=== PATIENT | female | born 1965 | race Hispanic/Latino ===

== ENCOUNTER 2017-06-18 17:47 | Emergency (ER) | payer OTHER, SELFPAY ==
[~2017-06-18 17:47] MED LIST: ISOVUE-370 76%-LOCM 1 ML ONE
[2017-06-18] MEDS ORDERED: Ondansetron HCl/PF 4 MG/2 ML Vial ONE ×2 (18:55→21:56)
[2017-06-18] MEDS ORDERED: Morphine 10 MG/ML VIAL ONE (18:55)
[2017-06-18 19:34] LABS: ALT (SGPT) 41 U/L (8-55); AST (SGOT) 28 U/L (5-34); Alkaline Phosphatase 96 U/L (40-150); Anion Gap 14 mmol/L (10-20); BUN (Urea Nitrogen) 17 mg/dL (7.0-18.7); Bilirubin, Total 0.3 mg/dL (0.2-1.2); Calc. Creatinine Clearance 0 mL/min (70-130); Calcium 9.4 mg/dL (7.8-10.44); Carbon Dioxide 27 mmol/L (22-29); Chloride 106 mmol/L (98-107); Estimated GFR-MDRD 77; Globulin 3.8 g/dL (2.4-3.5); Lipase 12 U/L (8-78); Protein, Total 7.8 g/dL (6.0-8.3)
[2017-06-18 19:38] LABS: Troponin I Less than 0.010 ng/mL (< 0.028)
--- NOTE | 2017-06-18 19:48 | CT ---
CT OF ABDOMEN AND PELVIS PERFORMED WITH INTRAVENOUS CONTRAST ENHANCEMENT: History: Abdominal pain. History of cholecystectomy. Frequent bowel movements with bright red blood. Also history of diverticulitis. Comparison: 05-25-16 FINDINGS: The lung bases are clear of any infiltrative process. The liver and spleen show no focal abnormalities. Pancreas region is unremarkable. The gallbladder h as been removed. Right and left adrenal glands and right and left kidneys are normal in size. There is no significant periaortic or mesenteric adenopathy. CT OF PELVIS PERFORMED WITH CONTRAST ENHANCEMENT: Sigmoid diverticulosis is noted. The appendix is normal. There is no evidence of adenopathy or mass. IMPRESSION: 1. Sigmoid diverticulosis. No acute abnormality of the abdomen or pelvis. POS: [facility]
[2017-06-18 20:52] LABS: Bilirubin Negative (Negative); Blood, Urine Negative (Negative); Glucose, Urine (Dipstick) Negative (Negative); Ketone, Urine Negative (Negative); Nitrite Negative (Negative); Protein, Urine (Dipstick) Negative (Neg-Trace)
[2017-06-18] MEDS ORDERED: Ketorolac Tromethamine 30 MG/ML VIAL ONE (21:32)
[2017-06-18] MEDS ORDERED: Morphine 2 MG/ML SYRINGE ONE (21:32)
[2017-06-18 21:40] LABS: #Eosinphils 0.2 thou/uL (0.0-0.7); #Lymphocytes 1.9 thou/uL (1.20-3.40); #Monocytes 0.7 thou/uL (0.11-0.59); #Neutrophils 4.8 thou/uL (1.40-6.50); %Basophils 0.5 % (0.0-1.0); %Eosinophils 2.3 % (0.0-10.0); %Lymphocytes 24.7 % (21.0-51.0); %Monocytes 9.7 % (0.0-10.0); Hematocrit 41.6 % (36.0-47.0); Mean Platelet Volume 9.2 fL (7.4-10.4); Red Blood Cell (RBC) Count 4.74 mill/uL (4.20-5.40); White Blood Cell (WBC) Count 7.6 thou/uL (4.8-10.8)
== END 2017-06-18 22:16 | disposition home or self-care (01) ==
LOC: ERS 17:47
DX: K62.5 Hemorrhage of anus and rectum (principal); G47.30 Sleep apnea, unspecified; M06.9 Rheumatoid arthritis, unspecified; J45.909 Unspecified asthma, uncomplicated; F41.9 Anxiety disorder, unspecified; Z79.891 Long term (current) use of opiate analgesic; Z79.899 Other long term (current) drug therapy
CPT/HCPCS: 74177; 80053; 81003; 82553; 83690; 84484; 85025; 96361; 96374; 96375; 96376; J1885; J2270; J2405

== ENCOUNTER 2017-08-31 16:55 | Emergency (ER) | payer MEDICAID, OTHER ==
[2017-08-31] MEDS ORDERED: Ketorolac Tromethamine 30 MG/ML VIAL ONE (18:32)
--- NOTE | 2017-08-31 20:09 | RAD ---
THREE VIEWS LUMBAR SPINE 08/31/17 HISTORY: Sciatic pain. COMPARISON: None. FINDINGS: Three views lumbar spine demonstrates six lumbar type vertebral bodies. Vertebral body height is main tained. No fracture. Disc space heights are preserved. Mild degenerative change in the posterior [place] ents at L5-L6. IMPRESSION: 1. No fracture. No significant loss of disc space height. 2. Six lumbar type vertebral bodies with mild degenerative change at L5-L6. POS: [facility]
--- NOTE | 2017-08-31 20:10 | RAD ---
LEFT HIP TWO VIEWS 08/31/17 COMPARISON: 07/02/17 HISTORY: Left hip pain. Pain will not subside after being given a shot. FINDINGS: Contour of the femoral head is maintained. No fracture or dislocation. Hip joint space is preserved. IMPRESSION: No significant degenerative change. No fracture. Stable exam. POS: [facility]
== END 2017-08-31 19:43 | disposition home or self-care (01) ==
LOC: ERS 16:55
DX: M54.5 Low back pain (principal); M25.552 Pain in left hip; F41.9 Anxiety disorder, unspecified; G43.909 Migraine, unspecified, not intractable, without status migrainosus; G47.30 Sleep apnea, unspecified; J45.909 Unspecified asthma, uncomplicated; M06.9 Rheumatoid arthritis, unspecified; Z79.899 Other long term (current) drug therapy
CPT/HCPCS: 72100; 96372; J1885

== ENCOUNTER 2017-09-03 17:30 | Emergency (ER) | payer OTHER ==
[2017-09-03] MEDS ORDERED: Ondansetron ODT 4 MG TAB ONE (19:09)
[2017-09-03] MEDS ORDERED: Acetaminophen 500 MG TAB ONE (19:09)
== END 2017-09-03 20:25 | disposition home or self-care (01) ==
LOC: ERS 17:30
DX: J11.1 Influenza due to unidentified influenza virus with other respiratory manifestations (principal); G43.909 Migraine, unspecified, not intractable, without status migrainosus; G47.30 Sleep apnea, unspecified; M06.9 Rheumatoid arthritis, unspecified; J45.909 Unspecified asthma, uncomplicated; F41.9 Anxiety disorder, unspecified
CPT/HCPCS: 94640; J7620; Q0162

== ENCOUNTER 2017-10-09 13:52 | Observation (INO) | payer OTHER ==
[2017-10-09] MEDS ORDERED: Albuterol Sulfate 2.5 mg/3 ml Neb NEB PRN (15:15)
[2017-10-09] MEDS ORDERED: Ondansetron HCl/PF 4 MG/2 ML Vial IVP PRN (15:18)
[2017-10-09] MEDS ORDERED: Ondansetron ODT 4 MG TAB PO PRN (15:18)
[2017-10-09] MEDS ORDERED: Sodium Chloride 0.9% 1,000 ML IV SCH (15:30)
[2017-10-09] MEDS ORDERED: Morphine 10 MG/ML CARPUJECT SLOW IVP PRN ×2 (16:03)
--- NOTE | 2017-10-09 17:20 | HP ---
PRIMARY CARE PHYSICIAN: Bharati Cortez M.D. PRESENTING COMPLAINT: Shortness of breath. HISTORY OF PRESENT ILLNESS: Ms. Shelby Mishra is a 52-year-old woman with a past medica l history of asthma, fibromyalgia, rheumatoid arthritis, osteoarthritis and diverticulitis who presen ts to the emergency room with a 5-day history of progressively worsening shortness of breath. This w as associated with a cough productive of clear/yellowish sputum. She denies fevers or chills, chest pain, palpitations, PND or lower extremity edema. She, however, admits to occasional headaches, naus ea, and wheezing. She has no history of intubation, has been placed on BiPAP before. She was seen b y primary care physician who started her on cephalosporin and steroids, but the patient's symptoms di d not ariana. She went to [place] where she was started on magnesium and Solu-Medrol and althoug h she improved slightly, she was still visibly short of breath and not able to speak in complete sent ences. She was thus transferred to the ER. At the emergency room, her vital signs were stable. Lab s were unremarkable with no increased WBC. Chest x-ray was normal. She was started on nebulizer dottie atments, antibiotics, and admitted for further management. PAST MEDICAL HISTORY: Asthma, fibromyalgia, rheumatoid arthritis, osteoarthritis, and diverticulitis . PAST SURGICAL HISTORY: Two C-sections, cholecystectomy and uterine ablation. FAMILY HISTORY: Reviewed, not contributory. SOCIAL HISTORY: Denies smoking, drinking alcohol or use of illicit drugs. ALLERGIES: None. REVIEW OF SYSTEMS: Constitutional: Denies weight loss, fevers or chills. HEENT: Denies any change s in vision, nasal congestion or ear problems. Cardiovascular: Negative. Respiratory: Per HPI. A bdominal: Negative. Genitourinary: Negative. Hematology: Negative. Allergy/immunology negative. Neurologic: Positive for headaches, otherwise negative. Skin: Denies rashes or lesions. Musculos keletal: Negative. PHYSICAL EXAMINATION: VITAL SIGNS: Stable. She was saturating well with 2 liters of oxygen (patient was on home oxygen). GENERAL: Not in acute distress, sitting comfortably in bed, speaking in complete sentences. HEENT: Normocephalic, atraumatic. Not pale, anicteric. EOMI, PERRLA. NECK: Supple, full range of movement. CARDIOVASCULAR: RRR, S1, S2 only. No murmurs, rubs or gallops. RESPIRATORY: Positive for wheezing bilaterally. Reduced breath sounds. ABDOMEN: Breath sounds positive, nontender, nondistended, no organomegaly. GENITOURINARY: Deferred. MUSCULOSKELETAL: Moves all extremities spontaneously. No skeletal abnormalities. NEUROLOGIC: Alert and oriented x3. No focal deficits. SKIN: Warm, dry, well perfused. LABORATORY DATA: Per HPI. IMAGING: Per HPI. ASSESSMENT AND PLAN: 1. Asthma exacerbation. The patient has been started on oxygen supplementation, received nebulizer treatments in the emergency room. On this admission, we will continue with scheduled and p.r.n. nebu lizer therapy. Continue oxygen supplementation and wean off. Since she has been on cephalosporins, we will give IV levofloxacin and IV Solu-Medrol 40 mg q.6 hours. We will monitor her vital signs roshni sely and reassess in the morning. 2. Rheumatoid arthritis. We will resume home medications once verified. She is currently not in ac edis flare. 3. Fibromyalgia. Resume home medications when verified. 4. Osteoarthritis. Resume home medications when verified.
[2017-10-09 18:41] VITALS: BMI 43.2
[2017-10-09] MEDS: guaiFENesin ER 600 MG TAB PO SCH (21:04)
[2017-10-09] MEDS: Acetaminophen 325 MG TAB PO PRN (21:04)
[2017-10-09] MEDS: Heparin 5,000 UNITS/ML VIAL SC SCH (21:04)
[2017-10-09] MEDS ORDERED: Amitriptyline HCl 25 MG TAB PO SCH (22:45)
[2017-10-10 05:33] LABS: Anion Gap 12 mmol/L (10-20); BUN (Urea Nitrogen) 15 mg/dL (7.0-18.7); Calc. Creatinine Clearance 159 mL/min (70-130); Calcium 9.8 mg/dL (7.8-10.44); Carbon Dioxide 27 mmol/L (22-29); Chloride 104 mmol/L (98-107); Estimated GFR-MDRD Greater than 90; Glucose 149 mg/dL (70-105); Potassium 4.5 mmol/L (3.5-5.1); Sodium 138 mmol/L (136-145)
[2017-10-10 05:56] LABS: Band 3 % (5-11); Hemoglobin 13.8 g/dL (12.0-16.0); Lymphocytes 8 % (21-51); MDiff Complete? YES; Mean Corpuscular HGB CONC 32.5 g/dL (32.0-36.0); Mean Corpuscular Hemoglobin 29.6 pg (27.0-31.0); Mean Platelet Volume 7.9 fL (7.4-10.4); Neutrophil 88 % (42-75); PLT Morphology Comment Appears Adequate; Platelet Count 264 thou/uL (130-400); RBC Distribution Width 12.9 % (11.5-14.5); RBC Morphology Normal; Reactive Lymphocytes 1 % (0-10); Red Blood Cell (RBC) Count 4.68 mill/uL (4.20-5.40); White Blood Cell (WBC) Count 13.5 thou/uL (4.8-10.8)
[2017-10-10] MEDS: Heparin 5,000 UNITS/ML VIAL SC SCH ×2 (08:38→14:30)
[2017-10-10] MEDS: guaiFENesin ER 600 MG TAB PO SCH (08:38)
[2017-10-10] MEDS ORDERED: FLU VACC QS2017-18 36 mo. & older 0.5 ML SYRINGE IM ONE (09:00)
--- NOTE | 2017-10-10 10:54 | PDOC.PN ---
- Subjective Encounter Start Date: 10/10/17 Encounter Start Time: 07:20 -: old records requested/rev Patient seen and examined. No new complaints. No overnight events - Objective MAR Reviewed: Yes Vital Signs & Weight: Vital Signs (12 hours) Temp Pulse Resp BP Pulse Ox 10/10/17 08:00 97.8 F 95 20 10/10/17 07:42 97.8 F 95 20 123/65 95 10/10/17 04:24 97.6 F 77 20 119/66 93 L 10/09/17 23:15 95 16 98 Weight Weight 214 lb 9.6 oz I&O: 10/09/17 10/10/17 10/11/17 06:59 06:59 06:59 Intake Total 480 240 Balance 480 240 Result Diagrams: 10/10/17 04:29 10/10/17 04:29 Phys Exam - Physical Examination Constitutional: NAD HEENT: PERRLA, moist MMs, sclera anicteric Neck: no JVD, supple Respiratory: no rales, wheezing present Cardiovascular: RRR, no significant murmur, no rub Gastrointestinal: soft, non-tender, no distention, positive bowel sounds Musculoskeletal: no edema, pulses present Neurological: non-focal, normal sensation Psychiatric: normal affect, A&O x 3 Skin: no rash, normal turgor Dx/Plan (1) Asthma exacerbation Code(s): J45.901 - UNSPECIFIED ASTHMA WITH (ACUTE) EXACERBATION Status: Acute (2) Anxiety and depression Code(s): F41.9 - ANXIETY DISORDER, UNSPECIFIED; F32.9 - MAJOR DEPRESSIVE DISORDER, SINGLE EPISODE, UNSPECIFIED Status: Chronic (3) Fibromyalgia Status: Chronic (4) GERD (gastroesophageal reflux disease) Code(s): K21.9 - GASTRO-ESOPHAGEAL REFLUX DISEASE WITHOUT ESOPHAGITIS Status: Chronic Comment: Stable, PPI (5) Morbid obesity with BMI of 40.0-44.9, adult Code(s): E66.01 - MORBID (SEVERE) OBESITY DUE TO EXCESS CALORIES; Z68.41 - BODY MASS INDEX (BMI) 40.0-44.9, ADULT Status: Chronic (6) KIMBERLI (obstructive sleep apnea) Code(s): G47.33 - OBSTRUCTIVE SLEEP APNEA (ADULT) (PEDIATRIC) Status: Chronic (7) Pseudotumor cerebri Code(s): G93.2 - BENIGN INTRACRANIAL HYPERTENSION Status: Chronic - Plan cont current plan of care * pt is doing well and she is ok to go home [facility] today * will taper prednisone * medication reviewed as below * symptomatic treatment * discharge in evening. Review of Systems - Review of Systems ENT: negative: Ear Pain, Ear Discharge, Nose Pain, Nose Discharge, Nose Congestion, Mouth Pain, Mouth Swelling, Throat Pain, Throat Swelling, Other Respiratory: negative: Cough, Dry, Shortness of Breath, Hemoptysis, SOB with Excertion, Pleuritic Pain, Sputum, Wheezing Cardiovascular: negative: chest pain, palpitations, orthopnea, paroxysmal nocturnal dyspnea, edema, light headedness, other Gastrointestinal: negative: Nausea, Vomiting, Abdominal Pain, Diarrhea, Constipation, Melena, Hematochezia, Other Genitourinary: negative: Dysuria, Frequency, Incontinence, Hematuria, Retention , Other Musculoskeletal: negative: Neck Pain, Shoulder Pain, Arm Pain, Back Pain, Hand Pain, Leg Pain, Foot Pain, Other Skin: negative: Rash, Lesions, Ishmael, Bruising, Other - Medications/Allergies Allergies/Adverse Reactions: Allergies Allergy/AdvReac Type Severity Reaction Status Date / Time azithromycin Allergy Intermediate Verified 10/09/17 20:13 tramadol [From Ultram] Allergy Verified 10/09/17 20:13 Medications: Current Medications Acetaminophen (Tylenol) 650 mg PO Q4H PRN PRN Reason: Headache/Fever or Pain Last Admin: 10/09/17 21:04 Dose: 650 mg Albuterol Sulfate (Ventolin) 2.5 mg NEB [id number] PRN PRN Reason: SOB &/or Wheezing Albuterol/Ipratropium (Duoneb) 3 ml NEB [id number] PRN PRN Reason: SOB &/or Wheezing Amitriptyline HCl (Elavil) 25 mg PO HS ARMANI Amitriptyline HCl (Elavil) 25 mg PO HS ARMANI Gabapentin (Neurontin) 600 mg PO BID ARMANI Heparin Sodium (Porcine) (Heparin) 5,[address] [facility] Last Admin: 10/10/17 08:38 Dose: 5,000 units Levofloxacin 750 mg/ Device 150 mls @ 100 mls/hr IVPB 1700 [facility] Last Admin: 10/09/17 21:03 Dose: 150 mls Methylprednisolone Sodium Succinate (Solu-Medrol) [address] [facility] Last Admin: 10/10/17 05:59 Dose: 40 mg Mometasone Furoate/Formoterol Fumar (Dulera 200 Mcg/5 Mcg Inhaler) 2 puff INH BID-RT [facility] Ondansetron HCl (Zofran Odt) 4 mg PO Q6H PRN PRN Reason: Nausea/Vomiting Ondansetron HCl (Zofran) 4 mg IVP Q6H PRN PRN Reason: Nausea/Vomiting
[2017-10-10 12:02] VITALS: BP 117/66; TEMP 97.7
--- NOTE | 2017-10-10 12:20 | DIS ---
PRIMARY CARE PHYSICIAN: Dr. Cortez. DATE OF ADMISSION: 10/09/2017 DATE OF DISCHARGE: 10/10/2017 DISCHARGE DISPOSITION: Home. PRIMARY DISCHARGE DIAGNOSIS: Asthma exacerbation. SECONDARY DISCHARGE DIAGNOSES: Anxiety and depression, asthma, fibromyalgia, gastroesophageal reflux disease, morbid obesity with BMI 43, obstructive sleep apnea, pseudotumor cerebri. PRIMARY PROCEDURE/OPERATION: None. RADIOLOGICAL INVESTIGATION: None. SIGNIFICANT LABORATORY DATA: WBC 13.5, hemoglobin 13.8, platelet 264. Sodium 138, potassium 4.5, BU N 15, creatinine 0.65, calcium 9.8. Chest x-ray was done at [facility] which showed no acute cardiopulmonary process. DISCHARGE MEDICATIONS: Ventolin nebulization q.6 hourly p.r.n., Ventolin inhaler 2 puffs q.6 hourly p.r.n., amitriptyline 25 mg p.o. at bedtime, Advair Diskus 250/50 one inhalation b.i.d., gabapentin 6 00 mg p.o. b.i.d., Levaquin 750 mg p.o. daily for 7 days. Prednisone 40 mg p.o. daily for 5 days, th en 20 mg p.o. daily for 5 days, and then 10 mg p.o. daily for 5 days. CONTRAINDICATIONS: None. CODE STATUS: FULL CODE. INPATIENT CONSULTANTS: None. ALLERGIES: AZITHROMYCIN, TRAMADOL. DISCHARGE PLAN: Post hospital, the patient will follow up with primary care physician in 1 week. HOSPITAL COURSE: A 52-year-old female who was admitted by Dr. العراقي. Please see his H&P for furt her details. This patient was admitted for increasing shortness of breath. She has underlying asthm a. She was in an eczema flare up. We admitted this patient in hospital. She was initially treated at [facility] and subsequently transferred to our hospital for further care and read mitted on medical floor under observation. Her chest x-ray was normal. She was treated with DuoNeb, Dulera, Solu-Medrol, empiric antibiotic therapy with levofloxacin. On discharge, we prescribed tape ring doses of prednisone and p.o. Levaquin for another 7 days. When I saw this patient today, the patient was completely normal. She was able to talk in full sente nces, is ambulatory, tolerating p.o. well. She is on room air. Overall, this patient is medically stable for discharge today. The patient is seen and examined at [facility] today. Please see my progress note from today for further details.
[2017-10-10] MEDS: Acetaminophen 325 MG TAB PO PRN (13:10)
[2017-10-10] MEDS ORDERED: Mometasone/Formoterol 120 PUFF INHALER INH SCH (18:30)
[2017-10-10] MEDS ORDERED: Gabapentin 300 MG CAP PO SCH (21:00)
[2017-10-10] MEDS ORDERED: Amitriptyline HCl 25 MG TAB PO SCH ×2 (21:00)
[2017-10-10] MEDS ORDERED: Non-Formulary Item 1 EACH (Fluticasone/Salmeterol [Advair Diskus 250/50] 1 INH) IH SCH (21:00)
== END 2017-10-10 17:25 | disposition home or self-care (01) ==
LOC: ERS 13:52 → 2SW 17:47
PROVIDERS: ADMIT Internal Medicine; ATTEND Internal Medicine
DX: J45.901 Unspecified asthma with (acute) exacerbation (principal); F41.9 Anxiety disorder, unspecified; F32.9 Major depressive disorder, single episode, unspecified; M79.7 Fibromyalgia; K21.9 Gastro-esophageal reflux disease without esophagitis; G47.33 Obstructive sleep apnea (adult) (pediatric); G93.2 Benign intracranial hypertension; M19.90 Unspecified osteoarthritis, unspecified site; M06.9 Rheumatoid arthritis, unspecified; G43.909 Migraine, unspecified, not intractable, without status migrainosus; E66.01 Morbid (severe) obesity due to excess calories; Z68.43 Body mass index [BMI] 50.0-59.9, adult; Z88.5 Allergy status to narcotic agent; Z88.1 Allergy status to other antibiotic agents; Z79.52 Long term (current) use of systemic steroids; Z79.51 Long term (current) use of inhaled steroids; Z79.899 Other long term (current) drug therapy; Z90.49 Acquired absence of other specified parts of digestive tract; Z98.890 Other specified postprocedural states
CPT/HCPCS: 36415; 80048; 85025; 87070; 87205; 90471; 90682; 94660; 94760; 96365; 96375; 96376; G0008; G0378; J1644; J1956; J2920; Q2036

== ENCOUNTER 2017-10-20 10:06 | Outpatient (CLI) | payer OTHER ==
--- NOTE | 2017-10-20 12:05 | MRI ---
LUMBAR SPINE MRI WITHOUT CONTRAST: DATE: 10/20/17. COMPARISON: None. HISTORY: Low back pain, left hip and leg pain for 2 years. TECHNIQUE: Multiplanar, multisequence MR imaging of the lumbar spine is obtained without contrast. FINDINGS: The sagittal STIR imaging demonstrates no focal area of osseous marrow edema. There is no anterolisthesis or retrolisthesis noted within the lumbar spine. Assuming 5 lumbar-type vertebral bodies, the conus medullaris terminates at the T12-L1 level. There appears to be a transitional L5 vertebral body which is partially sacralized on the right. T12-L1: Mild bilateral facet hypertrophy. Intervertebral disk height and signal intensity appears w ithin normal limits with no significant central canal or neural foraminal stenosis. L1-2: Mild bilateral facet hypertrophy. Intervertebral disk height and signal intensity is within n ormal limits with no significant central canal or neural foraminal stenosis. L2-3: Mild bilateral facet hypertrophy. Intervertebral disk height and signal intensity is within n ormal limits with no significant central canal or neural foraminal stenosis. L3-4: Mild/moderate bilateral facet hypertrophy. Intervertebral disk height is normal. There is mi ld disk desiccation with no significant central canal or neural foraminal stenosis. L4-5: There is mild disk bulge. There is bilateral facet hypertrophy. There is mild central canal stenosis and no significant neural foraminal stenosis. L5-S1: There is bilateral facet hypertrophy. Intervertebral disk height and signal intensity is wit hin normal limits. There is no significant central canal or neural foraminal stenosis. The imaged retroperitoneal structures appear grossly unremarkable. IMPRESSION: Multilevel lower lumbar spine facet hypertrophy present. No severe central canal or neural foraminal stenosis seen within the lumbar spine. POS: [facility]
== END 2017-10-20 10:07 | disposition home or self-care (01) ==
LOC: SCSMRI 10:06
PROVIDERS: ATTEND Orthopaedic Surgery
DX: M54.5 Low back pain (principal); M51.36 Other intervertebral disc degeneration, lumbar region
CPT/HCPCS: 72148

== ENCOUNTER 2017-12-28 10:54 | Emergency (ER) | payer OTHER ==
--- NOTE | 2017-12-28 11:55 | RAD ---
CHEST PA AND LATERAL: Date: 12/28/17 HISTORY: 52-year-old female with history of dyspnea, shortness of breath, and wheezing, with past medical hist ory of asthma, as well as cough. COMPARISON: 10/09/17. FINDINGS: Mild stable linear stranding in the lung bases. Heart size is within normal limits. The lungs are azael ar. No confluent pneumonia, overt edema, or pleural effusion. IMPRESSION: Mild stable chronic lung changes. No evidence of pneumonia or other acute process. POS: [facility]
[2017-12-28 12:17] LABS: Pregnancy Test - Urine (BHCG) Negative (Negative)
[2017-12-28 12:18] LABS: Pregu Control Background? CLEAR/WHITE (CLR/WHITE); Pregu Control Bar Appear? YES (CONTROL BAR); Specific Gravity 1.017 (1.002-1.036)
[2017-12-28] MEDS ORDERED: Dexamethasone 4 mg/ml Vial ONE (12:38)
== END 2017-12-28 12:57 | disposition home or self-care (01) ==
LOC: ERS 10:54
DX: J45.901 Unspecified asthma with (acute) exacerbation (principal); G43.909 Migraine, unspecified, not intractable, without status migrainosus; G47.30 Sleep apnea, unspecified; M06.9 Rheumatoid arthritis, unspecified; F41.9 Anxiety disorder, unspecified; Z79.899 Other long term (current) drug therapy
CPT/HCPCS: 71046; 81025; 94640; J1100; J7620

== ENCOUNTER 2018-01-08 12:09 | Emergency (ER) | payer OTHER ==
[2018-01-08 12:36] LABS: #Eosinphils 0.1 thou/uL (0.0-0.7); #Lymphocytes 2.6 thou/uL (1.20-3.40); #Monocytes 1.1 thou/uL (0.11-0.59); #Neutrophils 10.7 thou/uL (1.40-6.50); %Basophils 0.2 % (0.0-1.0); %Eosinophils 0.4 % (0.0-10.0); %Lymphocytes 18.1 % (21.0-51.0); %Monocytes 7.2 % (0.0-10.0); Mean Corpuscular HGB CONC 33.4 g/dL (32.0-36.0); Mean Corpuscular Hemoglobin 29.9 pg (27.0-31.0); Mean Corpuscular Volume 89.6 fl (81.0-99.0); Mean Platelet Volume 8.1 fL (7.4-10.4); Platelet Count 244 thou/uL (130-400); RBC Distribution Width 12.8 % (11.5-14.5); White Blood Cell (WBC) Count 14.5 thou/uL (4.8-10.8)
[2018-01-08 12:57] LABS: ALT (SGPT) 34 U/L (8-55); AST (SGOT) 16 U/L (5-34); Albumin 3.8 g/dL (3.5-5.0); Alkaline Phosphatase 100 U/L (40-150); Anion Gap 8 mmol/L (10-20); BUN (Urea Nitrogen) 15 mg/dL (7.0-18.7); Bilirubin, Total 0.3 mg/dL (0.2-1.2); Calc. Creatinine Clearance 0 mL/min (70-130); Calcium 9.4 mg/dL (7.8-10.44); Carbon Dioxide 31 mmol/L (22-29); Chloride 105 mmol/L (98-107); Estimated GFR-MDRD Greater than 90; Globulin 3.2 g/dL (2.4-3.5); Glucose 99 mg/dL (70-105); Potassium 3.8 mmol/L (3.5-5.1); Sodium 140 mmol/L (136-145)
[2018-01-08] MEDS ORDERED: ISOVUE-370 76%-LOCM 1 ML ONE (13:00)
[2018-01-08] MEDS ORDERED: Ondansetron ODT 4 MG TAB ONE (14:37)
[2018-01-08] MEDS ORDERED: Glycopyrrolate 0.2 MG/ML 5 ML SYRINGE SLOW IVP SCH (14:45)
[2018-01-08 15:02] LABS: BHCG - Serum Negative (NEGATIVE); Pregs Control Background? CLEAR/WHITE (CLR/WHITE); Pregs Control Bar Appear? YES (CONTROL BAR)
[2018-01-08] MEDS ORDERED: Morphine 4 MG/ML VIAL ONE (15:29)
--- NOTE | 2018-01-08 15:58 | CT ---
CT ABDOMEN AND PELVIS WITH CONTRAST: Date: 01/08/18 Multiple axial tomograms obtained through the abdomen and pelvis with IV enhancement. INDICATION: Left lower quadrant abdominal pain. FINDINGS: Lung bases are clear. Liver shows evidence of fatty replacement. Spleen and pancreas unremarkable. Adrenal glands appear no rmal. Kidneys unremarkable. Small bowel loops appear normal. Patient is post cholecystectomy. Appendix appears normal. There are scattered diverticula involving the left colon and sigmoid; howeve r, no CT evidence of diverticulitis identified. Uterus and adnexa appear unremarkable. There is a small cyst on a left ovary measuring approximately 1.5 cm. Aorta is normal caliber. No adenopathy identified. No osseous abnormality identified. IMPRESSION: 1. Diverticulosis of the left colon and sigmoid; however, no CT evidence of diverticulitis. 2. Small left ovarian cyst measuring up to 1.5 cm. Suggest follow-up pelvic ultrasound to confirm re solution in this age patient. POS: [facility]
[2018-01-08 17:00] LABS: Bilirubin Negative (Negative); Blood, Urine Negative (Negative); Clarity CLEAR (Clear); Glucose, Urine (Dipstick) Negative (Negative); Leukocyte Negative (Negative); Nitrite Negative (Negative); Protein, Urine (Dipstick) Negative (Neg-Trace); Urobilinogen 0.2 mg/dL (0.2-1.0)
[2018-01-08 17:38] LABS: Specific Gravity, Urine Greater than 1.060 (1.002-1.036)
== END 2018-01-08 17:15 | disposition home or self-care (01) ==
LOC: ERS 12:09
DX: K57.30 Diverticulosis of large intestine without perforation or abscess without bleeding (principal); E66.9 Obesity, unspecified; G43.909 Migraine, unspecified, not intractable, without status migrainosus; G47.30 Sleep apnea, unspecified; M06.9 Rheumatoid arthritis, unspecified; M19.90 Unspecified osteoarthritis, unspecified site; J45.909 Unspecified asthma, uncomplicated; F41.9 Anxiety disorder, unspecified; Z79.51 Long term (current) use of inhaled steroids; Z79.899 Other long term (current) drug therapy
CPT/HCPCS: 36415; 74177; 80053; 81003; 82274; 83605; 83690; 84703; 85025; 96361; 96374; 96375; J2270; Q0162

== ENCOUNTER 2018-03-11 17:15 | Emergency (ER) | payer OTHER ==
[2018-03-11 18:16] LABS: #Eosinphils 0.2 thou/uL (0.0-0.7); #Lymphocytes 1.6 thou/uL (1.20-3.40); #Monocytes 0.5 thou/uL (0.11-0.59); #Neutrophils 2.7 thou/uL (1.40-6.50); %Basophils 0.8 % (0.0-1.0); %Eosinophils 3.7 % (0.0-10.0); %Lymphocytes 30.7 % (21.0-51.0); %Monocytes 10.7 % (0.0-10.0); %Neutrophils 54.1 % (42.0-75.0); Hemoglobin 13.4 g/dL (12.0-16.0); Mean Corpuscular HGB CONC 34.5 g/dL (32.0-36.0); Mean Corpuscular Hemoglobin 30.1 pg (27.0-31.0); Mean Corpuscular Volume 87.2 fL (78.0-98.0); Platelet Count 195 thou/uL (130-400); RBC Distribution Width 12.6 % (11.5-14.5); Red Blood Cell (RBC) Count 4.46 mill/uL (4.20-5.40); White Blood Cell (WBC) Count 5.1 thou/uL (4.8-10.8)
[2018-03-11 18:36] LABS: Bilirubin Negative (Negative); Blood, Urine Negative (Negative); Clarity CLOUDY (Clear); Glucose, Urine (Dipstick) Negative (Negative); Leukocyte Small (Negative); Nitrite Negative (Negative); Protein, Urine (Dipstick) 30 mg/dL (Neg-Trace); Specific Gravity, Urine 1.023 (1.002-1.036)
[2018-03-11 18:36] LABS: ALT (SGPT) 61 U/L (8-55); AST (SGOT) 45 U/L (5-34); Albumin 4.1 g/dL (3.5-5.0); Alkaline Phosphatase 91 U/L (40-150); Anion Gap 11 mmol/L (10-20); BUN (Urea Nitrogen) 9 mg/dL (7.0-18.7); Bilirubin, Total 0.5 mg/dL (0.2-1.2); Calc. Creatinine Clearance 0 mL/min (70-130); Calcium 9.5 mg/dL (7.8-10.44); Carbon Dioxide 29 mmol/L (22-29); Chloride 106 mmol/L (98-107); Estimated GFR-MDRD 89; Globulin 3.2 g/dL (2.4-3.5); Glucose 118 mg/dL (70-105); Lipase 19 U/L (8-78); Potassium 3.4 mmol/L (3.5-5.1); Protein, Total 7.3 g/dL (6.0-8.3); Sodium 143 mmol/L (136-145)
[2018-03-11 18:41] LABS: Bacteria/HPF 1+ HPF (None Seen); Hyaline Casts/LPF 0-3 HYALINE CAST LPF (0-3 Hyaline); Pathc Cast-AUWi Flag 0.87 (0-2.49)
[2018-03-11 18:46] LABS: Yeast-AUWi Flag 30.9 (0-25.0)
[2018-03-11 19:01] LABS: RBC/HPF None Seen HPF (0-3)
[2018-03-11 19:02] LABS: Yeast-All Forms Rare HPF (None Seen)
--- NOTE | 2018-03-11 20:56 | CT ---
CONTRAST ENHANCED CT ABDOMEN AND PELVIS: HISTORY: A 52-year-old female with a history of abdominal pain. COMPARISON: 01/08/2018 TECHNIQUE: IV contrast was given. Oral contrast was not given. FINDINGS: The lung bases are unremarkable. No evidence of free intraperitoneal air is seen. Extensive hepatic steatosis is seen. The spleen is unremarkable. The pancreas is unremarkable. The gallbladder has been surgically removed. The adrenal glands are unremarkable. The kidneys are unremarkable. No dil ated loops of small bowel seen. A normal appendix is seen. Extensive descending colonic diverticulosis is present. No definite evidence of diverticulitis seen. No evidence of periaortic lymphadenopathy is seen. Multilevel lower lumbar and facet degenerative changes are seen. IMPRESSION: 1. Hepatic steatosis. 2. Descending colonic diverticulosis. POS: [facility]
[2018-03-11] MEDS ORDERED: Ondansetron HCl/PF 4 MG/2 ML Vial ONE (20:58)
[2018-03-11] MEDS ORDERED: Lidocaine Viscous Sol 2% 15 ml UD Cup ONE (21:30)
[2018-03-11] MEDS ORDERED: Mag-Al 1200 mg/1200 mg/30 ML UDCUP ONE (21:30)
== END 2018-03-11 22:48 | disposition home or self-care (01) ==
LOC: ERS 17:15
DX: R10.32 Left lower quadrant pain (principal); R10.12 Left upper quadrant pain; F41.9 Anxiety disorder, unspecified; J45.909 Unspecified asthma, uncomplicated; G43.909 Migraine, unspecified, not intractable, without status migrainosus; G47.30 Sleep apnea, unspecified; M06.9 Rheumatoid arthritis, unspecified; M19.90 Unspecified osteoarthritis, unspecified site; Z79.899 Other long term (current) drug therapy
CPT/HCPCS: 36415; 74177; 80053; 81003; 81015; 83690; 85025; 96374; 96375; J2270; J2405

== ENCOUNTER 2018-04-02 20:41 | Emergency (ER) | payer OTHER | END 2018-04-02 21:17 | disposition home or self-care (01) | LOC: SCSER 20:41 | DX: M25.512 Pain in left shoulder (principal); G43.909 Migraine, unspecified, not intractable, without status migrainosus; J45.909 Unspecified asthma, uncomplicated; F41.9 Anxiety disorder, unspecified; X58.XXXA Exposure to other specified factors, initial encounter | CPT/HCPCS: 99283 ==

== ENCOUNTER 2018-09-07 13:28 | Inpatient (IN) | payer OTHER ==
[2018-09-07 14:04] LABS: #Eosinphils 0.2 thou/uL (0.0-0.7); #Lymphocytes 1.6 thou/uL (1.20-3.40); #Monocytes 0.3 thou/uL (0.11-0.59); #Neutrophils 2.2 thou/uL (1.40-6.50); %Basophils 0.9 % (0.0-1.0); %Eosinophils 4.8 % (0.0-10.0); %Lymphocytes 36.3 % (21.0-51.0); %Monocytes 7.2 % (0.0-10.0); %Neutrophils 50.8 % (42.0-75.0); Hemoglobin 13.8 g/dL (12.0-16.0); Mean Corpuscular HGB CONC 33.5 g/dL (32.0-36.0); Mean Corpuscular Hemoglobin 29.2 pg (27.0-31.0); Mean Corpuscular Volume 87.1 fL (78.0-98.0); Mean Platelet Volume 7.7 fL (7.4-10.4); Platelet Count 204 thou/uL (130-400); RBC Distribution Width 12.4 % (11.5-14.5); Red Blood Cell (RBC) Count 4.72 mill/uL (4.20-5.40); White Blood Cell (WBC) Count 4.4 thou/uL (4.8-10.8)
[2018-09-07 14:23] LABS: ALT (SGPT) 59 U/L (8-55); AST (SGOT) 37 U/L (5-34); Albumin 3.9 g/dL (3.5-5.0); Alkaline Phosphatase 123 U/L (40-150); Anion Gap 14 mmol/L (10-20); BUN (Urea Nitrogen) 7 mg/dL (9.8-20.1); Bilirubin, Total 0.3 mg/dL (0.2-1.2); Calc. Creatinine Clearance 0 mL/min (70-130); Carbon Dioxide 28 mmol/L (22-29); Chloride 105 mmol/L (98-107); Estimated GFR-MDRD 84; Globulin 3.3 g/dL (2.4-3.5); Glucose 130 mg/dL (70-105); Potassium 4.1 mmol/L (3.5-5.1); Protein, Total 7.2 g/dL (6.0-8.3); Sodium 143 mmol/L (136-145)
--- NOTE | 2018-09-07 14:30 | RAD ---
2 VIEWS CHEST: Date: 09/07/18 COMPARISON: 12/28/17. HISTORY: Flu, asthma, wheezing, coughing. FINDINGS: Mild increased linear interstitial density noted bilaterally, a stable finding. No pneumothorax, pleu ral fluid, focal consolidation, or alveolar edema. IMPRESSION: Stable appearance of the chest. No acute findings. POS: [facility]
[2018-09-07] MEDS ORDERED: methylPREDNISolone Sod Succ/PF 125 MG/2 ML VIAL ONE (14:36)
[2018-09-07] MEDS ORDERED: Albuterol Sulfate 2.5 mg/0.5 ml Neb ONE ×2 (14:45→15:17)
[2018-09-07] MEDS ORDERED: Ondansetron PF 4 MG/2 ML Vial IVP PRN (18:47)
[2018-09-07] MEDS ORDERED: Ondansetron ODT 4 MG TAB SL PRN (18:47)
[2018-09-07] MEDS ORDERED: Acetaminophen 325 MG TAB PO PRN (18:47)
[2018-09-07] MEDS ORDERED: Sodium Chloride 0.9% 1,000 ML IV SCH (18:47)
[2018-09-07] MEDS ORDERED: Albuterol Sulfate 2.5 mg/3 ml Neb NEB PRN (18:48)
[2018-09-07] MEDS ORDERED: Magnesium 2 GM/50 ML 2 GM in Premix Bag 1 BAG IVPB SCH (19:00)
[2018-09-07 20:49] VITALS: BMI 45.3
[2018-09-07] MEDS ORDERED: tiZANidine HCl 4 MG TAB PO PRN (20:52)
[2018-09-07] MEDS ORDERED: Bisacodyl 5 MG TAB PO PRN (20:53)
[2018-09-07] MEDS ORDERED: Calcium Carbonate 500 MG ChewTAB PO PRN (20:53)
[2018-09-07] MEDS ORDERED: Senokot S 8.6-50 MG TAB PO PRN (20:53)
[2018-09-07] MEDS: Albuterol Sulfate 2.5 mg/3 ml Neb NEB SCH (21:59)
[2018-09-07] MEDS: Famotidine/PF 20 mg/2ml Vial SLOW IVP SCH (22:27)
[2018-09-07] MEDS ORDERED: Acetaminophen/Codeine 30-300mg Tablet PO SCH (22:30)
[2018-09-07] MEDS: Gabapentin 300 MG CAP PO SCH (22:38)
[2018-09-07] MEDS: Famotidine 20 MG TAB PO SCH (22:38)
[2018-09-07] MEDS: Amitriptyline HCl 25 MG TAB PO SCH (22:38)
[2018-09-08] MEDS: Albuterol Sulfate 2.5 mg/3 ml Neb NEB SCH (02:34)
[2018-09-08] MEDS: Acetaminophen/Codeine 30-300mg Tablet PO SCH ×3 (06:00→21:17)
[2018-09-08] MEDS: Budesonide 0.25 MG/2 ML NEB INH SCH ×2 (06:21→18:54)
[2018-09-08 07:07] LABS: #Lymphocytes 1.2 thou/uL (1.20-3.40); #Monocytes 0.1 thou/uL (0.11-0.59); %Eosinophils 0.4 % (0.0-10.0); %Lymphocytes 12.9 % (21.0-51.0); %Monocytes 1.4 % (0.0-10.0); %Neutrophils 85.3 % (42.0-75.0); Hemoglobin 13.3 g/dL (12.0-16.0); Mean Corpuscular HGB CONC 33.8 g/dL (32.0-36.0); Mean Corpuscular Hemoglobin 29.9 pg (27.0-31.0); Mean Corpuscular Volume 88.5 fL (78.0-98.0); Mean Platelet Volume 7.9 fL (7.4-10.4); Platelet Count 247 thou/uL (130-400); RBC Distribution Width 12.3 % (11.5-14.5); Red Blood Cell (RBC) Count 4.44 mill/uL (4.20-5.40); White Blood Cell (WBC) Count 9.4 thou/uL (4.8-10.8)
[2018-09-08 07:14] LABS: Anion Gap 10 mmol/L (10-20); BUN (Urea Nitrogen) 11 mg/dL (9.8-20.1); Calc. Creatinine Clearance 167 mL/min (70-130); Carbon Dioxide 23 mmol/L (22-29); Chloride 108 mmol/L (98-107); Estimated GFR-MDRD Greater than 90; Glucose 165 mg/dL (70-105); Potassium 4.4 mmol/L (3.5-5.1); Sodium 137 mmol/L (136-145)
--- NOTE | 2018-09-08 07:59 | HP ---
CHIEF COMPLAINT: Asthma exacerbation. HISTORY OF PRESENT ILLNESS: This is a 53-year-old female with past medical history of asthma, diverticulitis, sleep apnea, rheumatoid arthritis, osteoarthritis, fibromyalgia, presenting with asthma exacerbation. Per the patient, she states that she gets this shortness of breath, wheezing, which is part of her asthma exacerbation all the time. She is coming in because she is having severe shortness of breath and wheezes bilaterally in the lungs. This is the reason why she decided to come to the hospital. Per records, the patient has been having 1 week symptoms of shortness of breath and wheezing with cough, which has clear and greenish phlegm associated with some headaches. Of note, on October 09, 2017, the patient has similar episodes of asthma exacerbation induced by underlying infection. During that time, the patient was seen and was admitted for increasing shortness of breath. The patient was treated with Levaquin, Solu-Medrol, DuoNebs. At this time, the patient denies any fever, chills, nausea, vomiting, chest pain, palpitation, abdominal pain, dysuria, hematuria, melena, or hematochezia. But endorses cough, shortness of breath, bilateral wheezing in the lungs. REVIEW OF SYSTEMS: Positive for productive cough, shortness of breath, wheezing in the lungs bilaterally. Otherwise as documented in the HPI, all other systems have been reviewed and are negative. PAST MEDICAL HISTORY: Asthma, fibromyalgia, rheumatoid arthritis, osteoarthritis, and diverticulitis. FAMILY HISTORY: Reviewed and noncontributory to this visit. SURGICAL HISTORY: Two C-sections, cholecystectomy, and uterine ablation. SOCIAL HISTORY: Denies smoking, drinking alcohol, or using any illicit drugs. ALLERGIES: NO KNOWN DRUG ALLERGIES. CURRENT MEDICATIONS: The patient takes gabapentin 600 mg b.i.d. and tizanidine 2 mg. ALLERGIES: THE PATIENT IS ALLERGIC TO AZITHROMYCIN AND TRAMADOL. PHYSICAL EXAMINATION: VITAL SIGNS: The patient's blood pressure is 140/85, temperature is 98.2, pulse of 71, respiratory rate of 22. GENERAL: The patient is morbidly obese female lying in bed, does not appear to be in any acute distress. HEENT: Normocephalic and atraumatic. Pupils are equally round and reactive to light. Extraocular movements are intact. No scleral icterus. Mucous membranes are moist. NECK: Trachea is midline. Full range of motion. No meningeal signs. Supple. The patient has a big neck circumference. LUNGS: The patient has bilateral diffuse wheezes bilaterally. No rhonchi appreciated. CARDIAC: Positive S1 and S2. Regular rate and rhythm. No murmurs, no gallops, no rubs appreciated. ABDOMEN: Soft, nontender, and nondistended. Positive bowel sounds in all quadrants. No masses. No peritoneal signs. No rigidity. No guarding. EXTREMITIES: The patient has 5/5 upper extremity strength and 5/5 lower extremity strength. NEUROLOGIC: Cranial nerves 2 through 12 grossly intact. No neurologic deficits noted. SKIN: Warm, dry, and intact. PSYCHIATRIC: The patient has normal affect, alert and oriented x3. IMAGING STUDIES: EKG; a 12-lead EKG shows normal sinus rhythm with a rate of 71. Chest x-ray showed no acute findings. LABORATORY DATA: WBC is 4.4, hemoglobin is 13.8, hematocrit is 41.1, platelet count is 204. Electrolytes; sodium is 143, potassium is 4.1, chloride is 105, carbon dioxide of 28, anion gap of 14, BUN is 7, creatinine is 0.73, glucose is 130, AST is 37, ALT is 59. Troponin is less than 0.010. BNP is 15.8. ASSESSMENT AND PLAN: This is a 53-year-old female being admitted for, 1. Acute respiratory failure due to asthma exacerbation. At this time, the patient has been receiving oxygenation. We have given the patient magnesium, Solu-Medrol, DuoNeb treatments, Pulmicort. We will continue the patient on these treatments. We will continue to monitor the patient closely. We have consulted Pulmonology. We will follow up with career consultant's recommendations. 2. Bronchitis. At this time, we have empirically started the patient on Levaquin to treat underlying bronchitis in the setting of acute asthma exacerbation. We will continue to monitor the patient closely. 3. Morbid obesity. Diet and exercise have been advised. 4. Anxiety and depression. We will continue the patient on home medications. 5. History of rheumatoid arthritis, osteoarthritis. We will continue the patient on home medications, and we will monitor the patient closely. 6. Deep venous thrombosis/gastrointestinal prophylaxis. Job ID: [id number]
[2018-09-08] MEDS: Gabapentin 300 MG CAP PO SCH ×2 (08:12→19:46)
[2018-09-08] MEDS: Famotidine/PF 20 mg/2ml Vial SLOW IVP SCH ×2 (08:12→20:30)
[2018-09-08] MEDS: Famotidine 20 MG TAB PO SCH ×2 (08:12→20:30)
--- NOTE | 2018-09-08 13:20 | CON ---
DATE OF CONSULTATION: HISTORY OF PRESENT ILLNESS: This is a 53-year-old morbidly obese female, 98 kg, who sees Dr. Mustafa in our office, presenting with uncontrolled asthma with several days duration, unresponsive to home medication. Her saturations are 92% on room air, pulse is 85, blood pressure was 120/80, respiratory rate 28. She has diffuse wheezing. She denies any fevers, chills, sweats, or hemoptysis. She has coughing and clear sputum. Did not smoke. PAST MEDICAL HISTORY: Pertinent for sleep apnea, obesity, chronic asthma, fibromyalgia, chronic pain syndrome, and anxiety. PAST SURGICAL HISTORY: Previous surgeries otherwise include cholecystectomy, , and uterine ablation. MEDICATIONS: Home medicines; 1. Albuterol HFA. 2. Amitriptyline 25. 3. Neurontin. 4. Tizanidine 4 mg. 5. CPAP 11 cm. ALLERGIES: ZITHROMAX. REVIEW OF SYSTEMS: Otherwise 10-point negative. SOCIAL HISTORY: No alcohol or tobacco abuse. PHYSICAL EXAMINATION: VITAL SIGNS: O2 saturation is 95 on room air, pulse 80, and blood pressure . CHEST: Reveals bilateral wheezing. CARDIAC: Normal S1 and S2. No gallops. ABDOMEN: No masses. LABORATORY DATA: White count is 9000, otherwise unremarkable. Lytes are normal. Chest x-ray is normal. BNP is normal. IMPRESSION: Asthma exacerbation, morbid obesity, fibromyalgia, anxiety, and sleep apnea. PLAN: Nocturnal CPAP is ordered. Otherwise, continue neb treatments, steroids, and Dulera. Notified Dr. Mustafa. Consultation note, 70 minutes, 50% direct patient care. Job ID: [id number]
--- NOTE | 2018-09-08 14:18 | PDOC.PN ---
- Subjective Encounter Start Date: 09/08/18 Encounter Start Time: 10:00 Pt seen for followup re: acute respiratory failure. Denies chest pain. - Objective Resuscitation Status - Order Detail: 09/07/18 20:53 Resuscitation Status Routine Resuscitation Status: FULL: Full Resuscitation MAR Reviewed: Yes Vital Signs & Weight: Vital Signs (12 hours) Temp Pulse Resp BP BP Pulse Ox 09/08/18 13:30 84 16 96 09/08/18 09:48 87 15 95 09/08/18 08:00 93 L 09/08/18 07:55 98.2 F 84 20 131/84 93 L 09/08/18 06:21 66 16 98 09/08/18 05:44 98.1 F 66 20 116/69 98 09/08/18 02:34 99 12 94 L Weight Weight 217 lb I&O: 09/07/18 09/08/18 09/09/18 06:59 06:59 06:59 Intake Total 1080 720 Balance 1080 720 Result Diagrams: 09/08/18 06:35 09/08/18 06:35 Additional Labs: labs reviewed by me Phys Exam - Physical Examination Morbid obesity HEENT: moist MMs, sclera anicteric, oral pharynx no lesions, 2+ tonsils Neck: no nodes, no JVD, supple, full ROM Respiratory: wheezing present Cardiovascular: RRR, no rub S1, s2 Gastrointestinal: soft, non-tender, no distention, positive bowel sounds Neurological: moves all 4 limbs Psychiatric: normal affect, A&O x 3 Dx/Plan (1) Acute respiratory failure Code(s): J96.00 - ACUTE RESPIRATORY FAILURE, UNSP W HYPOXIA OR HYPERCAPNIA Status: Acute Comment: likely secondary to asthma exacerbation (2) Asthma exacerbation Code(s): J45.901 - UNSPECIFIED ASTHMA WITH (ACUTE) EXACERBATION Status: Acute Comment: continue oxygen, steroids, bronchodilators and antibiotics (3) Fibromyalgia Status: Chronic Comment: stable (4) GERD (gastroesophageal reflux disease) Code(s): K21.9 - GASTRO-ESOPHAGEAL REFLUX DISEASE WITHOUT ESOPHAGITIS Status: Chronic Comment: Stable, PPI (5) Morbid obesity with BMI of 40.0-44.9, adult Code(s): E66.01 - MORBID (SEVERE) OBESITY DUE TO EXCESS CALORIES; Z68.41 - BODY MASS INDEX (BMI) 40.0-44.9, ADULT Status: Chronic Comment: stable (6) KIMBERLI (obstructive sleep apnea) Code(s): G47.33 - OBSTRUCTIVE SLEEP APNEA (ADULT) (PEDIATRIC) Status: Chronic Comment: pt to use CPAP while asleep (7) Mild depression Code(s): F32.0 - MAJOR DEPRESSIVE DISORDER, SINGLE EPISODE, MILD Status: Chronic Comment: stable - Plan * . Review of Systems - Review of Systems Constitutional: negative: fever, chills, sweats, weakness, malaise Respiratory: Shortness of Breath, SOB with Excertion, Wheezing. negative: Cough , Dry, Hemoptysis, Pleuritic Pain, Sputum Cardiovascular: negative: chest pain, palpitations, orthopnea, paroxysmal nocturnal dyspnea, edema, light headedness Gastrointestinal: negative: Nausea, Vomiting, Abdominal Pain, Diarrhea, Constipation, Melena, Hematochezia Genitourinary: negative: Dysuria, Frequency, Incontinence, Hematuria, Retention Skin: negative: Rash, Lesions, Ishmael, Bruising - Medications/Allergies Allergies/Adverse Reactions: Allergies Allergy/AdvReac Type Severity Reaction Status Date / Time azithromycin Allergy Intermediate Verified 09/07/18 20:42 tramadol [From Ultram] Allergy Verified 09/07/18 20:42 Medications: Current Medications Acetaminophen/Codeine Phosphate (Tylenol #3) 1 tab PO Q8HR [facility] Last Admin: 09/08/18 14:08 Dose: 1 tab Albuterol/Ipratropium (Duoneb) 3 ml NEB [id number] [facility] Last Admin: 09/08/18 13:30 Dose: 3 ml Amitriptyline HCl (Elavil) 25 mg PO HS [facility] Last Admin: 09/07/18 22:38 Dose: 25 mg Bisacodyl (Dulcolax) 10 mg PO DAILYPRN PRN PRN Reason: Constipation Budesonide (Pulmicort Neb Solution) 0.25 mg INH BID-RT [facility] Last Admin: 09/08/18 06:21 Dose: 0.25 mg Calcium Carbonate (Tums) 1,000 mg PO Q4H PRN PRN Reason: Heartburn or Indigestion Famotidine (Pepcid) 20 mg SLOW IVP Q12HR [facility] Last Admin: 09/08/18 08:12 Dose: 20 mg Famotidine (Pepcid) 20 mg PO BID [facility] Last Admin: 09/08/18 08:12 Dose: 20 mg Gabapentin (Neurontin) 600 mg PO BID [facility] Last Admin: 09/08/18 08:12 Dose: 600 mg Levofloxacin 500 mg/ Device 100 mls @ 100 mls/hr IVPB 0800 [facility] Last Admin: 09/08/18 08:11 Dose: 100 mls Magnesium Sulfate 1 gm/ Sodium (Chloride) 102 mls @ 100 mls/hr IVPB NOW [facility] Stop: 09/08/18 15:00 Last Admin: 09/08/18 14:07 Dose: 102 mls Methylprednisolone Sodium Succinate (Solu-Medrol) 40 mg IVP Q6HR [facility] Last Admin: 09/08/18 11:55 Dose: 40 mg Mometasone Furoate/Formoterol Fumar (Dulera 200 Mcg/5 Mcg Inhaler) 2 puff INH BID-RT [facility] Senna/Docusate Sodium (Senokot S) 2 tab PO BID PRN PRN Reason: Constipation Sodium Chloride (Flush - Normal Saline) 10 ml IVF Q12HR [facility] Last Admin: 09/08/18 08:20 Dose: 10 ml Sodium Chloride (Flush - Normal Saline) 10 ml IVF PRN PRN PRN Reason: Saline Flush Tizanidine HCl (Zanaflex) 4 mg PO HS PRN PRN Reason: Muscle Pain
[2018-09-08] MEDS: Mometasone/Formoterol 120 PUFF INHALER INH SCH (19:21)
[2018-09-08] MEDS: Amitriptyline HCl 25 MG TAB PO SCH (20:30)
[2018-09-09] MEDS: Acetaminophen/Codeine 30-300mg Tablet PO SCH ×3 (05:22→21:13)
[2018-09-09] MEDS: Budesonide 0.25 MG/2 ML NEB INH SCH ×2 (06:08→18:19)
[2018-09-09] MEDS: Mometasone/Formoterol 120 PUFF INHALER INH SCH ×2 (06:11→18:29)
[2018-09-09] MEDS: Gabapentin 300 MG CAP PO SCH ×2 (08:12→21:12)
[2018-09-09] MEDS: Famotidine 20 MG TAB PO SCH ×2 (08:12→21:12)
[2018-09-09] MEDS: Famotidine/PF 20 mg/2ml Vial SLOW IVP SCH ×2 (08:13→21:18)
--- NOTE | 2018-09-09 11:42 | PRG ---
DATE OF SERVICE: 09/09/2018 SUBJECTIVE: This morning, she is better. She slept on CPAP last night. OBJECTIVE: VITAL SIGNS: Saturations are 95% on low-flow O2, temperature 98, pulse 79, respirations 20, and blood pressure 120/62. CHEST: Decreased breath sounds without any wheezing. CARDIAC: Normal S1 and S2. No gallops. ABDOMEN: No masses. IMPRESSION: 1. Obstructive sleep apnea, currently on CPAP. 2. Morbid obesity. 3. Asthma. PLAN: Switch over to oral steroids, neb treatments, and supportive care. Hopefully, she can be discharged home in the next 24 to 48 hours. Job ID: [id number]
--- NOTE | 2018-09-09 13:36 | PDOC.PN ---
- Subjective Encounter Start Date: 09/09/18 Encounter Start Time: 09:40 Pt seen for followup re: acute respiratory failure. Reports wheezing, SOBOE. - Objective Resuscitation Status - Order Detail: 09/07/18 20:53 Resuscitation Status Routine Resuscitation Status: FULL: Full Resuscitation MAR Reviewed: Yes Vital Signs & Weight: Vital Signs (12 hours) Temp Pulse Resp BP Pulse Ox 09/09/18 09:38 79 20 94 L 09/09/18 08:00 94 L 09/09/18 07:23 98.1 F 70 18 124/62 94 L 09/09/18 06:11 75 16 96 09/09/18 06:08 75 16 96 09/09/18 02:20 78 16 Weight Weight 217 lb I&O: 09/08/18 09/09/18 09/10/18 06:59 06:59 06:59 Intake Total 1080 1540 240 Balance 1080 1540 240 Result Diagrams: 09/08/18 06:35 09/08/18 06:35 Additional Labs: Labs reviewed by me Phys Exam - Physical Examination Morbid obesity HEENT: moist MMs, sclera anicteric, oral pharynx no lesions, 2+ tonsils Neck: no nodes, no JVD, supple, full ROM Respiratory: no rales, no rhonchi, wheezing present Cardiovascular: RRR, no rub S1, S2 Gastrointestinal: soft, non-tender, no distention, positive bowel sounds Neurological: moves all 4 limbs Psychiatric: normal affect, A&O x 3 Dx/Plan (1) Acute respiratory failure Code(s): J96.00 - ACUTE RESPIRATORY FAILURE, UNSP W HYPOXIA OR HYPERCAPNIA Status: Acute Comment: Improving (2) Asthma exacerbation Code(s): J45.901 - UNSPECIFIED ASTHMA WITH (ACUTE) EXACERBATION Status: Acute Comment: Improving with oxygen, steroids, bronchodilators and antibiotics (3) Fibromyalgia Status: Chronic Comment: stable (4) GERD (gastroesophageal reflux disease) Code(s): K21.9 - GASTRO-ESOPHAGEAL REFLUX DISEASE WITHOUT ESOPHAGITIS Status: Chronic Comment: Stable, continue PPI (5) Morbid obesity with BMI of 40.0-44.9, adult Code(s): E66.01 - MORBID (SEVERE) OBESITY DUE TO EXCESS CALORIES; Z68.41 - BODY MASS INDEX (BMI) 40.0-44.9, ADULT Status: Chronic Comment: stable (6) KIMBERLI (obstructive sleep apnea) Code(s): G47.33 - OBSTRUCTIVE SLEEP APNEA (ADULT) (PEDIATRIC) Status: Chronic Comment: pt using CPAP while asleep (7) Mild depression Code(s): F32.0 - MAJOR DEPRESSIVE DISORDER, SINGLE EPISODE, MILD Status: Chronic Comment: stable - Plan * . Review of Systems - Review of Systems Constitutional: negative: fever, chills, sweats, weakness, malaise Respiratory: SOB with Excertion, Wheezing. negative: Cough, Dry, Shortness of Breath, Hemoptysis, Pleuritic Pain, Sputum Cardiovascular: negative: chest pain, palpitations, orthopnea, paroxysmal nocturnal dyspnea, edema, light headedness Gastrointestinal: negative: Nausea, Vomiting, Abdominal Pain, Diarrhea, Constipation, Melena, Hematochezia Genitourinary: negative: Dysuria, Frequency, Incontinence, Hematuria, Retention Skin: negative: Rash, Lesions, Ishmael, Bruising - Medications/Allergies Allergies/Adverse Reactions: Allergies Allergy/AdvReac Type Severity Reaction Status Date / Time azithromycin Allergy Intermediate Verified 09/07/18 20:42 tramadol [From Ultram] Allergy Verified 09/07/18 20:42 Medications: Current Medications Acetaminophen/Codeine Phosphate (Tylenol #3) 1 tab PO Q8HR [facility] Last Admin: 09/09/18 05:22 Dose: 1 tab Albuterol/Ipratropium (Duoneb) 3 ml NEB [id number] [facility] Last Admin: 09/09/18 09:38 Dose: 3 ml Amitriptyline HCl (Elavil) 25 mg PO HS [facility] Last Admin: 09/08/18 20:30 Dose: 25 mg Bisacodyl (Dulcolax) 10 mg PO DAILYPRN PRN PRN Reason: Constipation Budesonide (Pulmicort Neb Solution) 0.25 mg INH BID-RT [facility] Last Admin: 09/09/18 06:08 Dose: 0.25 mg Calcium Carbonate (Tums) 1,000 mg PO Q4H PRN PRN Reason: Heartburn or Indigestion Last Admin: 09/08/18 19:33 Dose: 1,000 mg Famotidine (Pepcid) 20 mg SLOW IVP Q12HR [facility] Last Admin: 09/09/18 08:13 Dose: Not Given Famotidine (Pepcid) 20 mg PO BID [facility] Last Admin: 09/09/18 08:12 Dose: 20 mg Gabapentin (Neurontin) 600 mg PO BID [facility] Last Admin: 09/09/18 08:12 Dose: 600 mg Levofloxacin 500 mg/ Device 100 mls @ 100 mls/hr IVPB 0800 [facility] Last Admin: 09/09/18 08:13 Dose: 100 mls Mometasone Furoate/Formoterol Fumar (Dulera 200 Mcg/5 Mcg Inhaler) 2 puff INH BID-RT [facility] Last Admin: 09/09/18 06:11 Dose: 2 puff Prednisone (Prednisone) 20 mg PO BID-WM [facility] Senna/Docusate Sodium (Senokot S) 2 tab PO BID PRN PRN Reason: Constipation Sodium Chloride (Flush - Normal Saline) 10 ml IVF Q12HR [facility] Last Admin: 09/09/18 08:12 Dose: 10 ml Sodium Chloride (Flush - Normal Saline) 10 ml IVF PRN PRN PRN Reason: Saline Flush Tizanidine HCl (Zanaflex) 4 mg PO HS PRN PRN Reason: Muscle Pain Last Admin: 09/08/18 19:34 Dose: 4 mg
[2018-09-09] MEDS: predniSONE 20 MG TAB PO SCH (16:23)
[2018-09-09] MEDS: Amitriptyline HCl 25 MG TAB PO SCH (21:12)
[2018-09-10] MEDS: Acetaminophen/Codeine 30-300mg Tablet PO SCH (05:47)
[2018-09-10] MEDS: Budesonide 0.25 MG/2 ML NEB INH SCH (06:44)
[2018-09-10] MEDS: Mometasone/Formoterol 120 PUFF INHALER INH SCH (07:05)
[2018-09-10] MEDS: Famotidine/PF 20 mg/2ml Vial SLOW IVP SCH (07:33)
[2018-09-10] MEDS: predniSONE 20 MG TAB PO SCH (07:34)
[2018-09-10] MEDS: Famotidine 20 MG TAB PO SCH (07:34)
[2018-09-10] MEDS: Gabapentin 300 MG CAP PO SCH (07:34)
[2018-09-10 08:02] VITALS: BP 113/79; TEMP 98.2
--- NOTE | 2018-09-10 09:37 | PRG ---
DATE OF SERVICE: 09/10/2018 SUBJECTIVE: She is doing better and wants to go home. OBJECTIVE: VITAL SIGNS: Temperature is 98.2, pulse 74, respiratory rate 20, O2 saturation 96%, and blood pressure 113/79. HEENT: Unremarkable. NECK: No JVD. CHEST: Clear. CARDIAC: S1 and S2, regular. ABDOMEN: Soft. EXTREMITIES: No edema. ASSESSMENT: Asthma with exacerbation - clinically improved. PLAN: The patient is safe to be discharged home. She should go home on Dulera, albuterol, and albuterol nebs. She should go home on a tapered dose of prednisone over about 2 weeks. She tells me she has a followup appointment to see me later this month and she should keep that. Job ID: [id number]
--- NOTE | 2018-09-11 04:25 | DIS ---
DATE OF ADMISSION: 09/07/2018 DATE OF DISCHARGE: 09/10/2018 PRIMARY CARE PROVIDER: Bharati Cortez MD DISCHARGE DIAGNOSES: 1. Acute respiratory failure. 2. Asthma exacerbation. CONSULTATIONS DURING THIS HOSPITALIZATION: Pulmonology, Dr. Marlow. CONDITION OF PATIENT ON THE DAY OF DISCHARGE: Stable. I assessed Ms. Blair on the day of discharge. She reports feeling better. Vital signs are stable. S1 and S2 are heard, regular. Lungs are clear to auscultation bilaterally. DISCHARGE MEDICATIONS: 1. Ventolin nebulizers every 4 hours as needed. 2. Tylenol No.4 every 8 hours. 3. Amitriptyline 25 mg at bedtime. 4. Gabapentin 600 mg 2 times a day. 5. Tizanidine 4 mg at bedtime as needed. 6. Ventolin HFA 2 puffs every 6 hours as needed. 7. Levofloxacin 500 mg daily for a week. 8. Dulera 200/5 mcg inhaler 2 puffs two times a day and prednisone taper. HOSPITAL COURSE: Ms. Blair is a pleasant 53-year-old lady, who was admitted to [facility] on September 07, 2018, for acute respiratory failure. Please refer to Dr. Rivas's history and physical note dated September 08, 2018 for further details. She was seen by Pulmonology Service. She was treated with oxygen, steroids, bronchodilators, and antibiotics. She improved clinically and is being discharged home in a stable condition. Many thanks for allowing me to participate in your patient's care. Please feel free to contact me with any questions or concerns. DISCHARGE DESTINATION: Home. Total amount of time spent coordinating this discharge: 31 minutes. Job ID: [id number]
== END 2018-09-10 11:53 | disposition home or self-care (01) | DRG 202 ==
LOC: SCSER 13:28 → T4-A 16:23
PROVIDERS: ADMIT Internal Medicine; ATTEND Internal Medicine
PROC: 5A09357 Assistance with Respiratory Ventilation, Less than 24 Consecutive Hours, Continuous Positive Airway Pressure (ICD-10-PCS; principal; 2018-09-07)
DX: J45.901 Unspecified asthma with (acute) exacerbation (principal); J96.00 Acute respiratory failure, unspecified whether with hypoxia or hypercapnia; Z68.42 Body mass index [BMI] 45.0-49.9, adult; M06.9 Rheumatoid arthritis, unspecified; M19.90 Unspecified osteoarthritis, unspecified site; G47.33 Obstructive sleep apnea (adult) (pediatric); M79.7 Fibromyalgia; K21.9 Gastro-esophageal reflux disease without esophagitis; G89.4 Chronic pain syndrome; F41.8 Other specified anxiety disorders; E66.01 Morbid (severe) obesity due to excess calories; Z90.49 Acquired absence of other specified parts of digestive tract; Z98.890 Other specified postprocedural states; Z88.1 Allergy status to other antibiotic agents; Z88.8 Allergy status to other drugs, medicaments and biological substances
CPT/HCPCS: 36415; 71046; 80048; 80053; 83880; 84484; 85025; 93005; 94640; 94660; 96365; 96366; 96375; J1956; J2920; J2930; J3475; J7050; J7506; J7611; J7620; J7626; S0028

== ENCOUNTER 2018-10-16 09:26 | Outpatient (CLI) | payer OTHER ==
--- NOTE | 2018-10-16 12:11 | MRI ---
MRI LUMBAR SPINE WITHOUT CONTRAST: HISTORY: Lumbar radiculopathy. Left hip pain for a few months. COMPARISON: 10/20/2017 TECHNIQUE: MRI lumbar spine is performed without intravenous Gadolinium administration. Multisequential, multip lanar imaging is performed. FINDINGS: Appropriate T1 marrow signal intensity of the lumbar vertebrae. Lumbar spine vertebral body height i s maintained. There is no fracture. No significant STIR hyperintensity to suggest edema or ligament ous injury. Symmetric signal intensity of the psoas muscles. The visualized solid organs are unremarkable. T1 hypointense, T2 hyperintense lesions, left adnexa, likely representing a left ovarian cyst, measur ing 1.7 cm. The conus medullaris terminates at the inferior aspect of T12. T12-L1: Adequate disk hydration. No significant central canal stenosis or foraminal narrowing. L1-L2: Adequate disk hydration. No significant central canal stenosis or foraminal narrowing. L2-L3: Adequate disk hydration. No significant central canal stenosis or foraminal narrowing. L3-L4: Mild desiccation and loss of disk space height. No significant central canal stenosis. The foramina are patent. L4-L5: Mild loss of disk space height. Central disk bulge. Minimal ligamentum flavum thickening/fa cet hypertrophy result in minimal central canal stenosis. The foramina are patent. L5-S1: No high-grade central canal stenosis or high-grade foraminal narrowing. There is moderate bi lateral facet hypertrophy. IMPRESSION: 1. No significant central canal stenosis or foraminal narrowing. 2. There is hypertrophy of the posterior elements at L4-L5 and at L5-S1. No significant foraminal s tenosis. POS: JO ANN
== END 2018-10-16 09:27 | disposition home or self-care (01) ==
LOC: TBSIIMAG 09:26
PROVIDERS: ATTEND Nurse Practitioner Family
DX: M54.16 Radiculopathy, lumbar region (principal)
CPT/HCPCS: 72148

== ENCOUNTER 2020-02-11 16:43 | Emergency (ER) | payer OTHER ==
[~2020-02-11 16:43] MED LIST changes: -ISOVUE-370 76%-LOCM 1 ML ONE; +Iopamidol-370 76% 500 ML 1 ML ONE
[2020-02-11 20:03] LABS: #Basophils 0.1 thou/uL (0.0-0.2); #Eosinphils 0.3 thou/uL (0.0-0.7); #Lymphocytes 1.9 thou/uL (1.20-3.40); #Monocytes 0.5 thou/uL (0.11-0.59); #Neutrophils 4.1 thou/uL (1.40-6.50); %Basophils 1.4 % (0.0-1.0); %Eosinophils 3.9 % (0.0-10.0); %Lymphocytes 27.8 % (21.0-51.0); %Monocytes 6.9 % (0.0-10.0); Hemoglobin 14.8 g/dL (12.0-16.0); Mean Corpuscular HGB CONC 33.8 g/dL (32.0-36.0); Mean Corpuscular Hemoglobin 29.7 pg (27.0-31.0); Mean Platelet Volume 8.5 fL (7.4-10.4); Platelet Count 200 thou/uL (130-400); RBC Distribution Width 11.9 % (11.5-14.5); Red Blood Cell (RBC) Count 4.97 mill/uL (4.20-5.40); White Blood Cell (WBC) Count 6.8 thou/uL (4.8-10.8)
[2020-02-11 20:23] LABS: ALT (SGPT) 36 U/L (8-55); AST (SGOT) 30 U/L (5-34); Albumin 4.2 g/dL (3.5-5.0); Alkaline Phosphatase 106 U/L (40-110); Anion Gap 10 mmol/L (10-20); BUN (Urea Nitrogen) 9 mg/dL (9.8-20.1); Bilirubin, Total 0.4 mg/dL (0.2-1.2); Calc. Creatinine Clearance 0 mL/min (70-130); Calcium 9.6 mg/dL (7.8-10.44); Carbon Dioxide 28 mmol/L (22-29); Chloride 104 mmol/L (98-107); Estimated GFR-MDRD Greater than 90; Globulin 3.7 g/dL (2.4-3.5); Glucose 103 mg/dL (70-105); Lipase 10 U/L (8-78); Potassium 3.9 mmol/L (3.5-5.1); Protein, Total 7.9 g/dL (6.0-8.3); Sodium 138 mmol/L (136-145)
[2020-02-11 20:32] LABS: BHCG - Serum Negative (NEGATIVE); Pregs Control Background? CLEAR/WHITE (CLR/WHITE); Pregs Control Bar Appear? YES (CONTROL BAR)
[2020-02-11] MEDS ORDERED: Morphine 4 MG/ML VIAL ONE ×2 (20:38→22:24)
[2020-02-11] MEDS ORDERED: Ondansetron PF 4 MG/2 ML Vial ONE (20:38)
--- NOTE | 2020-02-11 21:25 | CT ---
CT ABDOMEN AND PELVIS WITH IV CONTRAST 02/11/2020 CLINICAL INFORMATION: Left lower quadrant abdominal pain. COMPARISON: 05/09/2018 Technique: Multiple contiguous axial CT images are obtained through the abdomen and pelvis with IV contrast. Cor onal reformatted images are provided. FINDINGS: Lower Chest: Lung bases are clear aside from minimal linear scar versus atelectasis in the lingula an d right middle lobe. Vessels: Abdominal aorta is normal in caliber without evidence of an aortic dissection. Abdomen: Portal vein:Patent Gallbladder: Surgically absent. Liver: Diminished attenuation similar to the prior study likely attributable to fatty infiltration. Spleen: within normal limits. Pancreas: within normal limits. Adrenals: within normal limits. Kidneys: within normal limits. Bowel: A few colonic diverticula are seen. Appendix: The appendix is visualized and normal in caliber. Peritoneum: No ascites or free air; no fluid collection. Mesentery and Retroperitoneum: No enlarged mesenteric or retroperitoneal lymph nodes. Abdominal Wall: within normal limits. Pelvis: Reproductive Organs: No pelvic masses. Pelvis within normal limits. Bladder: within normal limits. Bones: within normal limits. IMPRESSION: 1. No acute findings in the abdomen or pelvis. 2. No CT evidence of appendicitis. 3. Colonic diverticulosis. 4. Hepatic steatosis.
[2020-02-11 22:23] LABS: Bilirubin Negative (Negative); Blood, Urine Negative (Negative); Clarity Clear (Clear); Glucose, Urine (Dipstick) Normal (Negative); Leukocyte Negative Leu/uL (Negative); Nitrite Negative (Negative); Protein, Urine (Dipstick) Negative (Neg-Trace); Urobilinogen Normal mg/dL (Less than 2)
== END 2020-02-11 23:05 | disposition home or self-care (01) ==
LOC: ERS 16:43
DX: R10.32 Left lower quadrant pain (principal); R10.31 Right lower quadrant pain; G47.30 Sleep apnea, unspecified; F41.9 Anxiety disorder, unspecified; M06.9 Rheumatoid arthritis, unspecified; J45.909 Unspecified asthma, uncomplicated; M19.90 Unspecified osteoarthritis, unspecified site
CPT/HCPCS: 36415; 74177; 80053; 81003; 83690; 84703; 85025; 96372; 96374; 96375; 96376; J0500; J2270; J2405; Q9967

== ENCOUNTER 2020-02-20 23:06 | Emergency (ER) | payer OTHER ==
--- NOTE | 2020-02-21 07:39 | RAD ---
EXAM: Single view of the chest HISTORY: Covid exposure with cough and shortness of breath COMPARISON: 11/04/2019 FINDINGS: Single view of the chest shows a normal sized cardiomediastinal silhouette. There is no serg dence of consolidation, mass, or pleural effusion. The bones are unremarkable. IMPRESSION: No evidence of acute cardiopulmonary disease
[2020-02-21 14:51] LABS: SARS-CoV-2 MS2 Positive; SARS-CoV-2 N Gene Negative; SARS-CoV-2 S Gene Negative; SARS-CoV-2 orf1ab Negative
== END 2020-02-21 01:33 | disposition home or self-care (01) ==
LOC: ERS 23:06
DX: R05 Cough (principal); R50.9 Fever, unspecified; R06.02 Shortness of breath; Z20.828 Contact with and (suspected) exposure to other viral communicable diseases; G47.30 Sleep apnea, unspecified; M06.9 Rheumatoid arthritis, unspecified; M19.90 Unspecified osteoarthritis, unspecified site; J45.909 Unspecified asthma, uncomplicated; F41.9 Anxiety disorder, unspecified
CPT/HCPCS: 71045; 87635; U0003

== ENCOUNTER 2020-03-12 12:56 | Outpatient (CLI) | payer OTHER ==
--- NOTE | 2020-03-12 13:27 | RAD ---
XR Lumbar Spine Min 4 View History: Radiculopathy of lumbar region Comparison: None. Findings: The T12 ribs are small. 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 Moderate left and mild right SI joint degenerative change. Right upper quadrant surgical clips. No significant listhesis. No abnormal translation with flexion or extension. 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
--- NOTE | 2020-03-12 13:29 | RAD ---
XR Hip Lt 2-3 View HISTORY: Left hip pain FINDINGS: No fracture or dislocation is identified. The joint space appears to be preserved. No significant int erval changes are seen since 08/31/2017.
== END 2020-03-12 12:57 | disposition home or self-care (01) ==
LOC: BICRAD 12:56
PROVIDERS: ATTEND Nurse Practitioner Family
DX: M25.552 Pain in left hip (principal); M54.16 Radiculopathy, lumbar region
CPT/HCPCS: 72110

== ENCOUNTER 2020-07-12 19:00 | Outpatient (CLI) | payer OTHER | END 2020-07-12 19:01 | disposition home or self-care (01) | LOC: SLEEPLAB 19:00 | PROVIDERS: ATTEND Family Medicine | DX: G47.33 Obstructive sleep apnea (adult) (pediatric) (principal); F51.9 Sleep disorder not due to a substance or known physiological condition, unspecified; R09.89 Other specified symptoms and signs involving the circulatory and respiratory systems; R53.83 Other fatigue; R06.83 Snoring; F41.8 Other specified anxiety disorders; G47.00 Insomnia, unspecified; G47.10 Hypersomnia, unspecified; I10 Essential (primary) hypertension; E66.9 Obesity, unspecified; Z68.42 Body mass index [BMI] 45.0-49.9, adult | CPT/HCPCS: 95810 ==

== ENCOUNTER 2020-08-06 12:52 | Emergency (ER) | payer OTHER ==
[2020-08-06] MEDS ORDERED: Iopamidol-370 76% 500 ML 1 ML ONE (13:02)
[2020-08-06 14:19] LABS: #Eosinphils 0.2 thou/uL (0.0-0.7); #Lymphocytes 2.6 thou/uL (1.20-3.40); #Monocytes 0.6 thou/uL (0.11-0.59); #Neutrophils 3.1 thou/uL (1.40-6.50); %Basophils 0.3 % (0.0-1.0); %Eosinophils 3.6 % (0.0-10.0); %Lymphocytes 39.8 % (21.0-51.0); %Neutrophils 47.2 % (42.0-75.0); Mean Corpuscular HGB CONC 32.4 g/dL (32.0-36.0); Mean Corpuscular Hemoglobin 28.7 pg (27.0-31.0); Mean Corpuscular Volume 88.8 fL (78.0-98.0); Mean Platelet Volume 8.8 fL (7.4-10.4); Platelet Count 189 thou/uL (130-400); RBC Distribution Width 12.3 % (11.5-14.5); Red Blood Cell (RBC) Count 4.87 mill/uL (4.20-5.40); White Blood Cell (WBC) Count 6.5 thou/uL (4.8-10.8)
[2020-08-06 14:44] LABS: ALT (SGPT) 88 U/L (8-55); AST (SGOT) 72 U/L (5-34); Albumin 4.1 g/dL (3.5-5.0); Alkaline Phosphatase 121 U/L (40-110); Anion Gap 13 mmol/L (10-20); BUN (Urea Nitrogen) 9 mg/dL (9.8-20.1); Bilirubin, Total 0.6 mg/dL (0.2-1.2); Calc. Creatinine Clearance 0 mL/min (70-130); Calcium 9.1 mg/dL (7.8-10.44); Carbon Dioxide 29 mmol/L (22-29); Chloride 101 mmol/L (98-107); Globulin 3.1 g/dL (2.4-3.5); Glucose 85 mg/dL (70-105); Lipase 12 U/L (8-78); Potassium 4.2 mmol/L (3.5-5.1); Protein, Total 7.2 g/dL (6.0-8.3); Sodium 139 mmol/L (136-145)
--- NOTE | 2020-08-06 14:45 | CT ---
CT OF THE ABDOMEN AND PELVIS WITH IV CONTRAST INDICATION: History of diverticulitis and abdominal pain COMPARISON: February 11, 2020 CT the abdomen and pelvis FINDINGS: ABDOMEN: Lung bases: Clear Liver: Diffuse fatty liver Gallbladder: Surgically absent Pancreas: Normal. Adrenal glands: Normal. Spleen: Normal. Kidneys and ureters: Normal. No hydronephrosis. Vasculature: Normal. Lymph nodes:No lymphadenopathy. Free fluid in abdomen:No free fluid is evident. PELVIS: Small and large bowel: There is a mild amount retained stool within the colon. No active inflammatory change is evident involving the colon. Small bowel is of normal caliber. The visualized stomach and proximal small bowel appear within normal limits. Appendix:Normal Bladder: Normal. Rectal and perirectal soft tissues:Normal. Reproductive structures: Surgically absent Free fluid in pelvis: No free fluid is evident. Lymphadenopathy pelvis: No lymphadenopathy is evident. Osseous structures: No acute osseous abnormality. No destructive osteolytic or osteoblastic lesion i s identified. There is scattered degenerative and osteoarthritic changes. Soft tissues:Normal. IMPRESSION: 1. No acute abnormality. 2. Fatty liver 3. Mild amount retained stool within colon.
[2020-08-06] MEDS ORDERED: Ondansetron PF 4 MG/2 ML Vial ONE (15:04)
[2020-08-06] MEDS ORDERED: Ketorolac Tromethamine 30 MG/ML VIAL ONE (15:04)
[2020-08-06] MEDS ORDERED: Mag-Al 1200 mg/1200 mg/30 ML UDCUP ONE (15:44)
[2020-08-06] MEDS ORDERED: Lidocaine Viscous Sol 2% 15 ml UD Cup ONE (15:44)
[2020-08-06 15:49] LABS: Bilirubin Negative (Negative); Blood, Urine Negative (Negative); Clarity Clear (Clear); Glucose, Urine (Dipstick) Normal (Negative); Ketone, Urine Negative (Negative); Leukocyte Negative Leu/uL (Negative); Nitrite Negative (Negative); Protein, Urine (Dipstick) Negative (Neg-Trace); Urobilinogen Normal mg/dL (Less than 2)
[2020-08-06 15:51] LABS: Specific Gravity, Urine 1.048 (1.002-1.036)
== END 2020-08-06 16:30 | disposition home or self-care (01) ==
LOC: ERS 12:52
DX: K29.70 Gastritis, unspecified, without bleeding (principal); G43.909 Migraine, unspecified, not intractable, without status migrainosus; M06.9 Rheumatoid arthritis, unspecified
CPT/HCPCS: 36415; 74177; 80053; 81003; 83690; 85025; 93005; 96361; 96374; J1885; J2405; Q9967

== ENCOUNTER 2021-05-28 19:25 | Emergency (ER) | payer OTHER ==
[2021-05-28] MEDS ORDERED: Ondansetron PF 4 MG/2 ML Vial ONE (20:25)
[2021-05-28] MEDS ORDERED: Acetaminophen 500 MG TAB ONE (22:22)
== END 2021-05-28 21:38 | disposition home or self-care (01) ==
LOC: ERS 19:25
DX: S09.90XA Unspecified injury of head, initial encounter (principal); G47.30 Sleep apnea, unspecified; M19.90 Unspecified osteoarthritis, unspecified site; J45.909 Unspecified asthma, uncomplicated; M06.9 Rheumatoid arthritis, unspecified; M79.7 Fibromyalgia; W01.0XXA Fall on same level from slipping, tripping and stumbling without subsequent striking against object, initial encounter; Y93.68 Activity, volleyball (beach) (court); Y92.219 Unspecified school as the place of occurrence of the external cause
CPT/HCPCS: 70450; 96374; J2405

== ENCOUNTER 2021-12-04 22:14 | Emergency (ER) | payer OTHER ==
[2021-12-04 23:07] LABS: #Eosinphils 0.3 thou/uL (0.0-0.7); #Lymphocytes 2.3 thou/uL (1.20-3.40); #Monocytes 0.6 thou/uL (0.11-0.59); #Neutrophils 3.2 thou/uL (1.40-6.50); %Basophils 0.7 % (0.0-1.0); %Eosinophils 4.6 % (0.0-10.0); %Lymphocytes 36.2 % (21.0-51.0); %Monocytes 9.4 % (0.0-10.0); %Neutrophils 49.1 % (42.0-75.0); Hemoglobin 12.7 g/dL (12.0-16.0); Mean Corpuscular HGB CONC 32.7 g/dL (32.0-36.0); Mean Corpuscular Hemoglobin 29.3 pg (27.0-31.0); Mean Corpuscular Volume 89.6 fL (78.0-98.0); Mean Platelet Volume 7.8 fL (7.4-10.4); Platelet Count 178 thou/uL (130-400); RBC Distribution Width 12.4 % (11.5-14.5); Red Blood Cell (RBC) Count 4.32 mill/uL (4.20-5.40); White Blood Cell (WBC) Count 6.5 thou/uL (4.8-10.8)
[2021-12-04 23:29] LABS: ALT (SGPT) 39 U/L (8-55); AST (SGOT) 29 U/L (5-34); Albumin 4.1 g/dL (3.5-5.0); Alkaline Phosphatase 89 U/L (40-110); Anion Gap 11 mmol/L (10-20); BUN (Urea Nitrogen) 12 mg/dL (9.8-20.1); Bilirubin, Total 0.5 mg/dL (0.2-1.2); Calc. Creatinine Clearance 0 mL/min (70-130); Calcium 9.2 mg/dL (7.8-10.44); Carbon Dioxide 28 mmol/L (22-29); Chloride 105 mmol/L (98-107); Globulin 3.2 g/dL (2.4-3.5); Glucose 99 mg/dL (70-105); Lipase 14 U/L (8-78); Potassium 4.1 mmol/L (3.5-5.1); Protein, Total 7.3 g/dL (6.0-8.3); Sodium 140 mmol/L (136-145)
[2021-12-05] MEDS ORDERED: Lidocaine Viscous Sol 2% 15 ml UD Cup ONE (00:20)
[2021-12-05] MEDS ORDERED: Mag-Al 1200 mg/1200 mg/30 ML UDCUP ONE (00:20)
== END 2021-12-05 00:40 | disposition home or self-care (01) ==
LOC: ERS 22:14
DX: R10.13 Epigastric pain (principal); G47.30 Sleep apnea, unspecified; M06.9 Rheumatoid arthritis, unspecified; M19.90 Unspecified osteoarthritis, unspecified site; J45.909 Unspecified asthma, uncomplicated; Z79.899 Other long term (current) drug therapy
CPT/HCPCS: 36415; 80053; 83690; 84484; 85025; 93005

== ENCOUNTER 2022-05-24 10:38 | Outpatient (CLI) | payer OTHER | END 2022-05-24 10:39 | disposition home or self-care (01) | LOC: TBSIIMAG 10:38 | PROVIDERS: ATTEND Neurological Surgery | DX: G91.9 Hydrocephalus, unspecified (principal); R51.9 Headache, unspecified; G93.89 Other specified disorders of brain | CPT/HCPCS: 70551 ==

== ENCOUNTER 2022-07-12 14:33 | Emergency (ER) | payer OTHER ==
[2022-07-12] MEDS ORDERED: Ketorolac Tromethamine 30 MG/ML VIAL ONE (15:32)
== END 2022-07-12 15:56 | disposition home or self-care (01) ==
LOC: ERS 14:33
DX: N64.4 Mastodynia (principal); G43.909 Migraine, unspecified, not intractable, without status migrainosus; J45.909 Unspecified asthma, uncomplicated; Z79.899 Other long term (current) drug therapy
CPT/HCPCS: 96372; 99283; J1885

== ENCOUNTER 2023-03-28 09:33 | Outpatient (CLI) | payer OTHER | END 2023-03-28 09:34 | disposition home or self-care (01) | LOC: BICCT 09:33 | PROVIDERS: ATTEND Neurological Surgery | DX: G91.9 Hydrocephalus, unspecified (principal); J34.89 Other specified disorders of nose and nasal sinuses | CPT/HCPCS: 70450 ==

== ENCOUNTER 2024-02-12 12:10 | Emergency (ER) | payer OTHER ==
[~2024-02-12 12:10] MED LIST changes: -Iopamidol-370 76% 500 ML 1 ML ONE; +Iopamidol-370 76% 500 ML MDV (1 ML CHARGE) ONE
[2024-02-12 12:43] LABS: #Basophils 0.06 10x3/uL (0.0-0.2); %Basophils 1.1 % (0.0-1.0); %Eosinophils 4.4 % (0.0-10.0); %Lymphocytes 37.5 % (21.0-51.0); %Neutrophils 49.6 % (42.0-75.0); Hematocrit 45.2 % (36.0-47.0); Hemoglobin 13.8 g/dL (12.0-16.0); Mean Corpuscular HGB CONC 30.5 g/dL (32.0-36.0); Mean Corpuscular Volume 98.3 fL (78.0-98.0); Mean Platelet Volume 10.2 fL (7.4-10.4); Platelet Count 178 10x3/uL (130-400)
[2024-02-12 13:05] LABS: Troponin I Less than 0.010 ng/mL (< 0.028)
[2024-02-12 13:08] LABS: ALT (SGPT) 26 U/L (8-55); AST (SGOT) 22 U/L (5-34); Albumin 3.7 g/dL (3.5-5.0); Alkaline Phosphatase 109 U/L (40-110); Anion Gap 13 mmol/L (10-20); BUN (Urea Nitrogen) 12 mg/dL (9.8-20.1); Bilirubin, Total 0.4 mg/dL (0.2-1.2); Calc. Creatinine Clearance 0 mL/min (70-130); Calcium 9.4 mg/dL (7.8-10.44); Carbon Dioxide 26 mmol/L (22-29); Chloride 107 mmol/L (98-107); Estimated GFR 95; Globulin 3.8 g/dL (2.4-3.5); Glucose 92 mg/dL (70-105); Lipase 18 U/L (8-78); Potassium 3.8 mmol/L (3.5-5.1); Protein, Total 7.5 g/dL (6.0-8.3); Sodium 142 mmol/L (136-145)
[2024-02-12 13:17] LABS: Bacteria/HPF None Seen HPF (None Seen); Bilirubin Negative (Negative); Blood, Urine Negative (Negative); CAUTI Indications for Culture Pelvic or flank pain; Clarity Clear (Clear); Glucose, Urine (Dipstick) Normal (Negative); Ketone, Urine Negative (Negative); Leukocyte Negative Leu/uL (Negative); Nitrite Negative (Negative); Protein, Urine (Dipstick) Negative (Neg-Trace); RBC/HPF 0-3 HPF (0-3); Specific Gravity, Urine 1.018 (1.002-1.036); Squamous Epithelial 0-3 HPF (0-3); Urobilinogen Normal mg/dL (Less than 2); WBC/HPF 0-3 HPF (0-3); pH, Urine 6.5 (5.0-9.0)
[2024-02-12] MEDS ORDERED: Ondansetron PF 4 MG/2 ML Vial ONE ×2 (13:23→15:11)
[2024-02-12 13:28] LABS: Urine Culture Reflex No No
[2024-02-12] MEDS ORDERED: Ketorolac Tromethamine 30 MG (1 mL) VIAL ONE (15:10)
[2024-02-12] MEDS ORDERED: Morphine 4 MG/ML VIAL ONE (15:11)
== END 2024-02-12 15:48 | disposition home or self-care (01) ==
LOC: ERS 12:10
DX: R10.33 Periumbilical pain (principal); I10 Essential (primary) hypertension; G47.33 Obstructive sleep apnea (adult) (pediatric); M79.7 Fibromyalgia
CPT/HCPCS: 36415; 70450; 71045; 74177; 75809; 80053; 81001; 83690; 84484; 85025; 93005; 96374; 96375; 96376; J1885; J2270; J2405; Q9967

== ENCOUNTER 2024-07-03 10:09 | Outpatient (CLI) | payer MEDICAID, OTHER | END 2024-07-03 10:10 | disposition home or self-care (01) | LOC: BICMAMMO 10:09 | PROVIDERS: ATTEND Family Medicine | DX: Z12.31 Encounter for screening mammogram for malignant neoplasm of breast (principal) | CPT/HCPCS: 77067 ==

== ENCOUNTER 2025-05-04 12:26 | Emergency (ER) | payer OTHER ==
[2025-05-04 13:12] LABS: #Basophils 0.05 10x3/uL (0.0-0.2); #Eosinophils 0.28 10x3/uL (0.0-0.7); #Monocytes 0.48 10x3/uL (0.11-0.59); #Neutrophils 3.15 10x3/uL (1.40-6.50); %Basophils 0.8 % (0.0-1.0); %Eosinophils 4.3 % (0.0-10.0); %Lymphocytes 38.6 % (21.0-51.0); %Monocytes 7.4 % (0.0-10.0); %Neutrophils 48.4 % (42.0-75.0); Hematocrit 40.7 % (36.0-47.0); Hemoglobin 13.0 g/dL (12.0-16.0); Mean Corpuscular Hemoglobin 28.5 pg (27.0-31.0); Mean Corpuscular Volume 89.3 fL (78.0-98.0); Platelet Count 192 10x3/uL (130-400); Red Blood Cell (RBC) Count 4.56 mill/uL (4.20-5.40); White Blood Cell (WBC) Count 6.50 10x3/uL (4.8-10.8)
[2025-05-04 13:18] LABS: Bacteria/HPF 1+ HPF (None Seen); CAUTI Indications for Culture Pelvic or flank pain; Glucose, Urine (Dipstick) Normal (Negative); Leukocyte Negative Leu/uL (Negative); Protein, Urine (Dipstick) Negative (Neg-Trace); RBC/HPF 0-3 HPF (0-3); Specific Gravity, Urine 1.007 (1.002-1.036); WBC/HPF 0-3 HPF (0-3)
[2025-05-04 13:19] LABS: Urine Culture Reflex No No
[2025-05-04] MEDS ORDERED: Iopamidol-370 76% 500 ML MDV (1 ML CHARGE) ONE (13:25)
[2025-05-04] MEDS ORDERED: Ondansetron PF 4 MG/2 ML Vial ONE (13:27)
[2025-05-04 13:29] LABS: ALT (SGPT) 18 U/L (Less than 34); AST (SGOT) 19 U/L (11-34); Albumin 3.6 g/dL (3.1-4.5); Alkaline Phosphatase 106 U/L (40-110); Anion Gap 11 mmol/L (10-20); BUN (Urea Nitrogen) 8 mg/dL (9.8-20.1); Bilirubin, Total 0.3 mg/dL (0.3-1.2); Calc. Creatinine Clearance 0 mL/min (70-130); Calcium 8.7 mg/dL (7.8-10.44); Carbon Dioxide 26 mmol/L (22-29); Chloride 105 mmol/L (98-107); Globulin 3.6 g/dL (2.4-3.5); Glucose 90 mg/dL (70-105); Lipase 46 U/L (8-78); Magnesium 2.0 mg/dL (1.6-2.6); Potassium 4.3 mmol/L (3.5-5.1); Sodium 138 mmol/L (136-145)
[2025-05-04] MEDS ORDERED: diphenhydrAMINE 50 MG/ML VIAL ONE (16:15)
[2025-05-04] MEDS ORDERED: Acetaminophen 500 MG TAB ONE (16:15)
[2025-05-04] MEDS ORDERED: Metoclopramide HCl 10 MG (2 mL) VIAL ONE (16:16)
== END 2025-05-04 17:10 | disposition home or self-care (01) ==
LOC: ERS 12:26
DX: R51.9 Headache, unspecified (principal); M19.90 Unspecified osteoarthritis, unspecified site; G91.9 Hydrocephalus, unspecified; M79.7 Fibromyalgia; J45.909 Unspecified asthma, uncomplicated; K57.92 Diverticulitis of intestine, part unspecified, without perforation or abscess without bleeding; Z98.2 Presence of cerebrospinal fluid drainage device
CPT/HCPCS: 70450; 71045; 74177; 75809; 80053; 81001; 83690; 83735; 84484; 85025; 93005; 96374; 96375; 96376; J1200; J2405; J2765; J3010; Q9967